=== PATIENT | female | born 1945 | race Caucasian/White ===

== ENCOUNTER 2017-08-21 13:57 | Emergency (ER) | payer MEDICARE, BC ==
[~2017-08-21] VITALS: Ht 162.6 cm; Wt 61.4 kg
[~2017-08-21 13:57] MED LIST: AMPH12.52 PO; CLON-528 PO; DEXT1CAP3 PO; LAMO100T2 PO; LORA1TAB PO
[2017-08-21 15:07] LABS: BASOPHILS # (AUTO) 0.1 X10'3 (0-0.2); BASOPHILS % (AUTO) 1.4 % (0-1); EOSINOPHILS % (AUTO) 0.5 % (0-6); HEMOGLOBIN 12.7 g/dl (12.0-16.0); LYMPHOCYTES # (AUTO) 1.1 X10'3 (1.1-4.8); LYMPHOCYTES % (AUTO) 27.6 % (21-51); MEAN CORPUSCULAR HEMOGLOBIN 26.3 PG (27.0-31.0); MEAN CORPUSCULAR HGB CONC 33.5 % (33.0-36.5); MEAN CORPUSCULAR VOLUME 78.4 FL (78-98); MEAN PLATELET VOLUME 8.4 FL (7.4-10.4); MONOCYTES # (AUTO) 0.3 X10'3 (0-0.9); MONOCYTES % (AUTO) 6.7 % (2-12); NEUTROPHILS # (AUTO) 2.4 X10'3 (1.8-7.7); NEUTROPHILS % (AUTO) 63.8 % (42-75); PLATELET COUNT 227 X10'3 (140-440); RED BLOOD COUNT 4.84 X10'6 (4.20-5.60); RED CELL DISTRIBUTION WIDTH 14.7 % (11.5-14.5); WHITE BLOOD COUNT 3.8 X10'3 (4.5-11.0)
[2017-08-21 15:32] LABS: ALANINE AMINOTRANSFERASE 22 U/L (12-78); ALBUMIN 3.5 G/DL (3.4-5.0); ALBUMIN/GLOBULIN RATIO 0.9 (1.1-1.5); ALKALINE PHOSPHATASE 234 IU/L (46-116); ANION GAP 11 (8-16); ASPARTATE AMINO TRANSFERASE 29 U/L (10-37); BILIRUBIN,TOTAL 0.3 MG/DL (0.1-1.0); BLOOD UREA NITROGEN 20 MG/DL (7-18); BUN/CREATININE RATIO 22.2 (6.6-38.0); CALCIUM 9.4 MG/DL (8.5-10.1); CHLORIDE 102 MMOL/L (99-107); ETHANOL < 0.010 GM/DL (0.0-0.010); POTASSIUM 3.7 MMOL/L (3.5-5.1); SODIUM 138 MMOL/L (135-145); TOTAL CARBON DIOXIDE 25.5 MMOL/L (24-32); TOTAL PROTEIN 7.3 G/DL (6.4-8.2); eGFR 61 ML/MIN
[2017-08-21 15:37] LABS: GLUCOSE 155 MG/DL (70-104)
[2017-08-21 16:19] LABS: CLARITY,URINE CLEAR (Clear); COLOR,URINE YELLOW (Yellow); GLUCOSE, URINE NEGATIVE (Neg); KETONES,URINE 15 mg/dl (Neg); LEUKOCYTE ESTERASE ,URINE SMALL (Neg); NITRITES, URINE NEGATIVE (Neg); OCCULT BLOOD,URINE NEGATIVE (Neg); PROTEIN,URINE NEGATIVE (Neg); UROBILINOGEN,URINE 0.2 E.U/dL (0.2-1.0)
[2017-08-21 16:20] LABS: UA COLLECTION TYPE NON-SPECIFIED
[2017-08-21 16:26] LABS: BACTERIA,URINE NONE SEEN /HPF (Neg); RBC,URINE NONE SEEN /HPF (0-2); SQUAMOUS EPITHELIAL CELL,UR FEW /LPF (FEW); URINE AMPHETAMINE SCREEN NEGATIVE (Neg); URINE BARBITUATE SCREEN NEGATIVE (Neg); URINE BENZODIAZEPINES SCREEN NEGATIVE (Neg); URINE CANNABINOID SCREEN POSITIVE (Neg); URINE COCAINE SCREEN NEGATIVE (Neg); URINE METHADONE SCREEN NEGATIVE (Neg); URINE OPIATE SCREEN NEGATIVE (Neg); URINE PHENCYCLIDINE SCREEN NEGATIVE (Neg)
[2017-08-21] MEDS: LACTOSE-FREE FOOD (BOOST BREEZE) 237ML PO SCH (18:05)
[2017-08-21] MEDS ORDERED: traZODone 50mg tablet PO ONE (23:55)
[2017-08-22] MEDS: LACTOSE-FREE FOOD (BOOST BREEZE) 237ML PO SCH ×2 (08:00→12:55)
[2017-08-22] MEDS ORDERED: lamoTRIgine 100mg tablet PO SCH (08:00)
[2017-08-22] MEDS ORDERED: nitrofuran/nitrofuran macrocrysal 100 MG capsule PO SCH (08:00)
[2017-08-22] MEDS ORDERED: LORazepam 1 MG tablet PO ONE (08:40)
[2017-08-22 15:35] VITALS: BP 113/59
[2017-08-22] MEDS ORDERED: lurasidone 20mg tablet PO SCH (21:00)
== END 2017-08-22 15:39 | disposition home or self-care (01) ==
LOC: ER 13:57
DX: F31.9 Bipolar disorder, unspecified (principal); F12.10 Cannabis abuse, uncomplicated; R62.7 Adult failure to thrive
CPT/HCPCS: 36415; 80053; 80305; 80320; 81001; 84443; 85025; 87077; 87088; 87186; 99285

== ENCOUNTER 2017-08-22 12:45 | Inpatient (IN) | payer MEDICARE, BC ==
[~2017-08-22] VITALS: Ht 167.6 cm; Wt 60.3 kg
[2017-08-22 15:17] VITALS: BP 141/84
[2017-08-22 16:17] VITALS: BP 141/84
[2017-08-22 20:00] VITALS: BP 124/75
[2017-08-22] MEDS ORDERED: acetaminophen 325mg tablet PO PRN (20:25)
[2017-08-22] MEDS ORDERED: magnesium hydroxide 30ml (MOM) UD suspension PO PRN (20:25)
[2017-08-22] MEDS ORDERED: mag hydrox/Alum hydrox/simeth 30ml oral suspension PO PRN (20:25)
[2017-08-22] MEDS ORDERED: nitrofuran/nitrofuran macrocrysal 100 MG capsule PO ONE (21:50)
[2017-08-22] MEDS: hydrOXYzine 10 MG tablet PO PRN (22:04)
[2017-08-22] MEDS: traMADol 50MG tablet PO PRN (22:04)
[2017-08-23 08:00] VITALS: BP 118/76
[2017-08-23] MEDS ORDERED: nitrofuran/nitrofuran macrocrysal 100 MG capsule PO SCH (08:30)
[2017-08-23] MEDS: hydrOXYzine 10 MG tablet PO PRN ×2 (08:37→20:38)
[2017-08-23] MEDS: traMADol 50MG tablet PO PRN ×2 (08:39→20:39)
[2017-08-23] MEDS ORDERED: duloxetine 30mg CAPSULE.DR PO ONE (11:25)
[2017-08-23 20:00] VITALS: BP 119/60
[2017-08-23] MEDS: sulfamethoxazole/trimethoprim DS (800/160mg) tablet PO SCH (20:37)
[2017-08-23] MEDS: traZODone 50mg tablet PO PRN (20:38)
[2017-08-24 07:08] VITALS: BP 108/54
[2017-08-24] MEDS: sulfamethoxazole/trimethoprim DS (800/160mg) tablet PO SCH ×2 (08:13→20:00)
[2017-08-24] MEDS: duloxetine 30mg CAPSULE.DR PO SCH (08:13)
[2017-08-24] MEDS: hydrOXYzine 10 MG tablet PO PRN ×2 (08:49→18:59)
[2017-08-24] MEDS: lactobacillus rhamnosus 10,000 MMU CELLS/CAPSULE PO SCH (17:41)
[2017-08-24] MEDS: Protein Smoothie (high protein) 240ml (8oz) cup PO SCH (18:17)
[2017-08-24] MEDS: traMADol 50MG tablet PO PRN (18:59)
[2017-08-24 19:43] VITALS: BP 131/48
[2017-08-24] MEDS: traZODone 50mg tablet PO PRN (21:05)
[2017-08-24] MEDS: polyethylene glycol 3350 17gm powd pack PO SCH (21:05)
[2017-08-25 08:00] VITALS: BP 126/48
[2017-08-25] MEDS: Protein Smoothie (high protein) 240ml (8oz) cup PO SCH ×3 (08:00→18:00)
[2017-08-25] MEDS: lactobacillus rhamnosus 10,000 MMU CELLS/CAPSULE PO SCH ×2 (08:21→20:49)
[2017-08-25] MEDS: sulfamethoxazole/trimethoprim DS (800/160mg) tablet PO SCH ×2 (08:22→20:49)
[2017-08-25] MEDS: duloxetine 30mg CAPSULE.DR PO SCH (08:22)
[2017-08-25] MEDS ORDERED: duloxetine 30mg CAPSULE.DR PO ONE (10:15)
[2017-08-25] MEDS: Protein Shake (high protein) 240ml (8oz) cup PO SCH ×2 (13:00→18:00)
[2017-08-25] MEDS: hydrOXYzine 10 MG tablet PO PRN (13:45)
[2017-08-25 20:00] VITALS: BP 124/52
[2017-08-25] MEDS: traZODone 50mg tablet PO PRN (20:49)
[2017-08-25] MEDS: polyethylene glycol 3350 17gm powd pack PO SCH (20:53)
[2017-08-26 08:00] VITALS: BP 123/52
[2017-08-26] MEDS: lactobacillus rhamnosus 10,000 MMU CELLS/CAPSULE PO SCH ×2 (08:03→17:54)
[2017-08-26] MEDS: sulfamethoxazole/trimethoprim DS (800/160mg) tablet PO SCH ×2 (08:03→20:18)
[2017-08-26] MEDS: duloxetine 30mg CAPSULE.DR PO SCH (08:03)
[2017-08-26] MEDS: Protein Shake (high protein) 240ml (8oz) cup PO SCH ×4 (08:20→18:30)
[2017-08-26] MEDS: Protein Smoothie (high protein) 240ml (8oz) cup PO SCH ×3 (08:20→18:30)
[2017-08-26] MEDS: hydrOXYzine 10 MG tablet PO PRN ×2 (08:58→19:01)
[2017-08-26] MEDS: traMADol 50MG tablet PO PRN (19:01)
[2017-08-26] MEDS: lurasidone 20mg tablet PO SCH (19:20)
[2017-08-26 20:03] VITALS: BP 153/71
[2017-08-26] MEDS: polyethylene glycol 3350 17gm powd pack PO SCH (20:18)
[2017-08-26] MEDS: traZODone 50mg tablet PO PRN (20:32)
[2017-08-27] MEDS ORDERED: bisacodyl 10mg suppository rectal RC PRN (05:10)
[2017-08-27 07:42] LABS: CHOL/HDL RATIO 2.9 (0.00-4.99); CHOLESTEROL 194 MG/DL (0-200); HDL CHOLESTEROL 67 MG/DL (35-60); LDL CHOLESTEROL 105 MG/DL (50-100); TRIGLYCERIDES 54 MG/DL (20-135)
[2017-08-27 07:44] LABS: HEMOGLOBIN A1C 5.7 % (4.5-6.2)
[2017-08-27] MEDS: Protein Shake (high protein) 240ml (8oz) cup PO SCH ×3 (07:55→17:53)
[2017-08-27] MEDS: Protein Smoothie (high protein) 240ml (8oz) cup PO SCH ×3 (07:55→17:52)
[2017-08-27] MEDS: sulfamethoxazole/trimethoprim DS (800/160mg) tablet PO SCH ×2 (07:57→20:12)
[2017-08-27] MEDS: duloxetine 30mg CAPSULE.DR PO SCH (07:57)
[2017-08-27] MEDS: lactobacillus rhamnosus 10,000 MMU CELLS/CAPSULE PO SCH ×2 (07:57→17:52)
[2017-08-27] MEDS: sennosides/docusate sodium tablet PO SCH ×2 (07:57→20:13)
[2017-08-27 08:00] VITALS: BP 131/56
[2017-08-27] MEDS: hydrOXYzine 10 MG tablet PO PRN ×2 (08:42→20:13)
[2017-08-27] MEDS: lurasidone 20mg tablet PO SCH (17:52)
[2017-08-27] MEDS ORDERED: lurasidone 20mg tablet PO SCH (18:00)
[2017-08-27 19:41] VITALS: BP 126/60
[2017-08-27] MEDS: polyethylene glycol 3350 17gm powd pack PO SCH (20:12)
[2017-08-27] MEDS: traZODone 50mg tablet PO PRN (20:13)
[2017-08-28 07:20] VITALS: BP 136/44
[2017-08-28] MEDS: lactobacillus rhamnosus 10,000 MMU CELLS/CAPSULE PO SCH ×2 (07:50→17:52)
[2017-08-28] MEDS: Protein Smoothie (high protein) 240ml (8oz) cup PO SCH ×3 (07:52→17:52)
[2017-08-28] MEDS: Protein Shake (high protein) 240ml (8oz) cup PO SCH ×3 (07:52→17:52)
[2017-08-28] MEDS: sennosides/docusate sodium tablet PO SCH ×2 (08:40→20:16)
[2017-08-28] MEDS: sulfamethoxazole/trimethoprim DS (800/160mg) tablet PO SCH ×2 (08:40→20:16)
[2017-08-28] MEDS: duloxetine 30mg CAPSULE.DR PO SCH (08:40)
[2017-08-28] MEDS: hydrOXYzine 10 MG tablet PO PRN ×2 (12:17→19:13)
[2017-08-28] MEDS: lurasidone 20mg tablet PO SCH (19:02)
[2017-08-28] MEDS: traMADol 50MG tablet PO PRN (19:05)
[2017-08-28 19:45] VITALS: BP 128/68
[2017-08-28] MEDS: polyethylene glycol 3350 17gm powd pack PO SCH (20:16)
[2017-08-28] MEDS: traZODone 50mg tablet PO PRN (20:17)
[2017-08-29 07:12] VITALS: BP 120/54
[2017-08-29] MEDS: sennosides/docusate sodium tablet PO SCH ×2 (07:26→20:00)
[2017-08-29] MEDS: sulfamethoxazole/trimethoprim DS (800/160mg) tablet PO SCH ×2 (07:26→20:33)
[2017-08-29] MEDS: duloxetine 30mg CAPSULE.DR PO SCH ×2 (07:26→12:38)
[2017-08-29] MEDS: lactobacillus rhamnosus 10,000 MMU CELLS/CAPSULE PO SCH ×2 (07:26→17:41)
[2017-08-29] MEDS: Protein Smoothie (high protein) 240ml (8oz) cup PO SCH ×3 (07:58→17:43)
[2017-08-29] MEDS: Protein Shake (high protein) 240ml (8oz) cup PO SCH ×3 (07:58→17:43)
[2017-08-29] MEDS: hydrOXYzine 10 MG tablet PO PRN ×2 (11:21→23:59)
[2017-08-29] MEDS: lurasidone 20mg tablet PO SCH (17:43)
[2017-08-29 19:30] VITALS: BP 125/54
[2017-08-29] MEDS: polyethylene glycol 3350 17gm powd pack PO SCH (20:30)
[2017-08-29] MEDS: traZODone 50mg tablet PO PRN (20:33)
[2017-08-29] MEDS: traZODone 50mg tablet PO SCH ×3 (20:50→23:52)
[2017-08-30 07:17] VITALS: BP 137/65
[2017-08-30] MEDS: sulfamethoxazole/trimethoprim DS (800/160mg) tablet PO SCH ×2 (07:19→20:40)
[2017-08-30] MEDS: sennosides/docusate sodium tablet PO SCH ×2 (07:19→20:40)
[2017-08-30] MEDS: duloxetine 30mg CAPSULE.DR PO SCH ×2 (07:19→12:44)
[2017-08-30] MEDS: lactobacillus rhamnosus 10,000 MMU CELLS/CAPSULE PO SCH ×2 (07:19→17:44)
[2017-08-30] MEDS: Protein Shake (high protein) 240ml (8oz) cup PO SCH ×3 (08:02→17:44)
[2017-08-30] MEDS: Protein Smoothie (high protein) 240ml (8oz) cup PO SCH ×3 (08:03→17:44)
[2017-08-30] MEDS: hydrOXYzine 10 MG tablet PO PRN ×2 (10:37→19:27)
[2017-08-30] MEDS: lurasidone 20mg tablet PO SCH (17:44)
[2017-08-30 19:00] VITALS: BP 112/41
[2017-08-30] MEDS: traMADol 50MG tablet PO PRN (19:28)
[2017-08-30] MEDS: traZODone 50mg tablet PO SCH (20:39)
[2017-08-30] MEDS: polyethylene glycol 3350 17gm powd pack PO SCH (21:00)
[2017-08-31 08:00] VITALS: BP 123/69
[2017-08-31] MEDS: sennosides/docusate sodium tablet PO SCH ×2 (08:23→20:19)
[2017-08-31] MEDS: lactobacillus rhamnosus 10,000 MMU CELLS/CAPSULE PO SCH ×2 (08:23→17:44)
[2017-08-31] MEDS: duloxetine 30mg CAPSULE.DR PO SCH (08:23)
[2017-08-31] MEDS: sulfamethoxazole/trimethoprim DS (800/160mg) tablet PO SCH ×2 (08:23→20:18)
[2017-08-31] MEDS: Protein Smoothie (high protein) 240ml (8oz) cup PO SCH ×3 (08:24→18:00)
[2017-08-31] MEDS: Protein Shake (high protein) 240ml (8oz) cup PO SCH ×3 (08:24→18:00)
[2017-08-31] MEDS ORDERED: duloxetine 30mg CAPSULE.DR PO ONE (15:25)
[2017-08-31] MEDS: traMADol 50MG tablet PO PRN (15:35)
[2017-08-31] MEDS: hydrOXYzine 10 MG tablet PO PRN (15:35)
[2017-08-31] MEDS: lurasidone 20mg tablet PO SCH (17:44)
[2017-08-31 19:26] VITALS: BP 129/53
[2017-08-31] MEDS: traZODone 50mg tablet PO SCH (20:19)
[2017-08-31] MEDS: polyethylene glycol 3350 17gm powd pack PO SCH (20:20)
[2017-09-01] MEDS: sulfamethoxazole/trimethoprim DS (800/160mg) tablet PO SCH (07:50)
[2017-09-01] MEDS: duloxetine 30mg CAPSULE.DR PO SCH (07:50)
[2017-09-01] MEDS: lactobacillus rhamnosus 10,000 MMU CELLS/CAPSULE PO SCH ×2 (07:50→17:06)
[2017-09-01] MEDS: Protein Smoothie (high protein) 240ml (8oz) cup PO SCH ×3 (07:50→18:43)
[2017-09-01] MEDS: sennosides/docusate sodium tablet PO SCH ×2 (07:50→20:37)
[2017-09-01] MEDS: Protein Shake (high protein) 240ml (8oz) cup PO SCH ×3 (07:52→18:42)
[2017-09-01 08:00] VITALS: BP 112/52
[2017-09-01] MEDS: hydrOXYzine 10 MG tablet PO PRN (10:30)
[2017-09-01] MEDS ORDERED: duloxetine 30mg CAPSULE.DR PO SCH (12:30)
[2017-09-01] MEDS ORDERED: duloxetine 30mg CAPSULE.DR PO ONE (13:25)
[2017-09-01] MEDS: traMADol 50MG tablet PO PRN (17:06)
[2017-09-01 19:50] VITALS: BP 124/47
[2017-09-01] MEDS: polyethylene glycol 3350 17gm powd pack PO SCH (20:48)
[2017-09-01] MEDS ORDERED: QUEtiapine 25mg tablet PO SCH (21:00)
[2017-09-02] MEDS: duloxetine 30mg CAPSULE.DR PO SCH ×2 (07:44→12:43)
[2017-09-02] MEDS: lactobacillus rhamnosus 10,000 MMU CELLS/CAPSULE PO SCH ×2 (07:44→17:45)
[2017-09-02] MEDS: sennosides/docusate sodium tablet PO SCH ×2 (07:44→20:04)
[2017-09-02 08:00] VITALS: BP 119/66
[2017-09-02] MEDS: Protein Shake (high protein) 240ml (8oz) cup PO SCH ×3 (08:00→18:28)
[2017-09-02] MEDS: Protein Smoothie (high protein) 240ml (8oz) cup PO SCH ×3 (08:00→18:28)
[2017-09-02] MEDS: hydrOXYzine 10 MG tablet PO PRN (13:44)
[2017-09-02] MEDS: traMADol 50MG tablet PO PRN (13:45)
[2017-09-02] MEDS: polyethylene glycol 3350 17gm powd pack PO SCH (20:08)
[2017-09-02 20:22] VITALS: BP 123/48
[2017-09-02] MEDS ORDERED: QUEtiapine 25mg tablet PO SCH (21:00)
[2017-09-03 07:39] VITALS: BP 144/65
[2017-09-03] MEDS: Protein Shake (high protein) 240ml (8oz) cup PO SCH ×3 (08:00→18:33)
[2017-09-03] MEDS: Protein Smoothie (high protein) 240ml (8oz) cup PO SCH ×3 (08:00→18:33)
[2017-09-03] MEDS: lactobacillus rhamnosus 10,000 MMU CELLS/CAPSULE PO SCH ×2 (08:16→17:15)
[2017-09-03] MEDS: duloxetine 30mg CAPSULE.DR PO SCH ×2 (08:16→12:18)
[2017-09-03] MEDS: sennosides/docusate sodium tablet PO SCH ×2 (08:17→20:16)
[2017-09-03 18:55] VITALS: BP 155/70
[2017-09-03 20:00] VITALS: BP 155/70
[2017-09-03] MEDS: polyethylene glycol 3350 17gm powd pack PO SCH (21:00)
[2017-09-03] MEDS ORDERED: QUEtiapine 25mg tablet PO SCH (21:00)
[2017-09-04 07:10] VITALS: BP 131/61
[2017-09-04] MEDS: lactobacillus rhamnosus 10,000 MMU CELLS/CAPSULE PO SCH ×2 (08:19→17:32)
[2017-09-04] MEDS: duloxetine 30mg CAPSULE.DR PO SCH ×2 (08:20→12:35)
[2017-09-04] MEDS: sennosides/docusate sodium tablet PO SCH ×2 (08:20→20:41)
[2017-09-04] MEDS: Protein Smoothie (high protein) 240ml (8oz) cup PO SCH ×3 (08:21→18:30)
[2017-09-04] MEDS: Protein Shake (high protein) 240ml (8oz) cup PO SCH ×3 (08:21→18:30)
[2017-09-04] MEDS: traMADol 50MG tablet PO PRN ×4 (16:08→17:29)
[2017-09-04 19:07] VITALS: BP 139/72
[2017-09-04] MEDS: polyethylene glycol 3350 17gm powd pack PO SCH (20:41)
[2017-09-04] MEDS: quetiapine 100mg tablet PO SCH (20:41)
[2017-09-05] MEDS: Protein Smoothie (high protein) 240ml (8oz) cup PO SCH ×3 (08:00→18:57)
[2017-09-05] MEDS: Protein Shake (high protein) 240ml (8oz) cup PO SCH ×3 (08:00→18:57)
[2017-09-05 08:09] VITALS: BP 118/46
[2017-09-05] MEDS: duloxetine 30mg CAPSULE.DR PO SCH ×2 (08:11→13:01)
[2017-09-05] MEDS: lactobacillus rhamnosus 10,000 MMU CELLS/CAPSULE PO SCH ×2 (08:11→19:06)
[2017-09-05] MEDS: sennosides/docusate sodium tablet PO SCH ×2 (08:11→20:50)
[2017-09-05 19:00] VITALS: BP 144/61
[2017-09-05] MEDS: quetiapine 100mg tablet PO SCH (20:51)
[2017-09-05] MEDS: polyethylene glycol 3350 17gm powd pack PO SCH (20:59)
[2017-09-06 07:42] VITALS: BP 163/72
[2017-09-06] MEDS: duloxetine 30mg CAPSULE.DR PO SCH ×2 (08:06→13:29)
[2017-09-06] MEDS: lactobacillus rhamnosus 10,000 MMU CELLS/CAPSULE PO SCH (08:06)
[2017-09-06] MEDS: sennosides/docusate sodium tablet PO SCH ×2 (08:06→20:39)
[2017-09-06] MEDS: Protein Smoothie (high protein) 240ml (8oz) cup PO SCH ×3 (08:17→18:01)
[2017-09-06] MEDS: Protein Shake (high protein) 240ml (8oz) cup PO SCH ×3 (08:17→18:01)
[2017-09-06] MEDS: traMADol 50MG tablet PO PRN (11:03)
[2017-09-06] MEDS: hydrOXYzine 10 MG tablet PO PRN (15:48)
[2017-09-06 20:00] VITALS: BP 139/84
[2017-09-06] MEDS: quetiapine 100mg tablet PO SCH (20:39)
[2017-09-06] MEDS: polyethylene glycol 3350 17gm powd pack PO SCH (21:00)
[2017-09-07 07:30] VITALS: BP 119/54
[2017-09-07] MEDS: duloxetine 30mg CAPSULE.DR PO SCH ×2 (08:11→12:51)
[2017-09-07] MEDS: sennosides/docusate sodium tablet PO SCH ×2 (08:12→20:18)
[2017-09-07] MEDS: Protein Shake (high protein) 240ml (8oz) cup PO SCH ×3 (08:17→14:00)
[2017-09-07] MEDS: Protein Smoothie (high protein) 240ml (8oz) cup PO SCH ×3 (08:17→18:00)
[2017-09-07] MEDS: busPIRone 5mg tablet PO SCH ×2 (12:50→20:18)
[2017-09-07] MEDS: hydrOXYzine 10 MG tablet PO PRN (14:20)
[2017-09-07] MEDS: quetiapine 100mg tablet PO SCH (20:18)
[2017-09-07] MEDS: polyethylene glycol 3350 17gm powd pack PO SCH (20:25)
[2017-09-07 20:46] VITALS: BP 154/55
[2017-09-08 08:00] VITALS: BP 148/72
[2017-09-08] MEDS: Protein Smoothie (high protein) 240ml (8oz) cup PO SCH ×3 (08:16→18:00)
[2017-09-08] MEDS: Protein Shake (high protein) 240ml (8oz) cup PO SCH ×3 (08:16→18:00)
[2017-09-08] MEDS: sennosides/docusate sodium tablet PO SCH ×2 (08:17→20:25)
[2017-09-08] MEDS: duloxetine 30mg CAPSULE.DR PO SCH ×2 (08:17→12:43)
[2017-09-08] MEDS: busPIRone 5mg tablet PO SCH ×3 (08:17→20:25)
[2017-09-08] MEDS: hydrOXYzine 10 MG tablet PO PRN (12:43)
[2017-09-08 20:00] VITALS: BP 141/66
[2017-09-08] MEDS: quetiapine 100mg tablet PO SCH (20:25)
[2017-09-08] MEDS: polyethylene glycol 3350 17gm powd pack PO SCH (21:00)
[2017-09-09] MEDS: busPIRone 5mg tablet PO SCH ×3 (07:54→20:21)
[2017-09-09] MEDS: sennosides/docusate sodium tablet PO SCH ×2 (07:54→20:21)
[2017-09-09] MEDS: duloxetine 30mg CAPSULE.DR PO SCH ×2 (07:54→13:00)
[2017-09-09 08:00] VITALS: BP 140/68
[2017-09-09] MEDS: Protein Shake (high protein) 240ml (8oz) cup PO SCH ×3 (08:58→18:43)
[2017-09-09] MEDS: Protein Smoothie (high protein) 240ml (8oz) cup PO SCH ×3 (08:58→18:43)
[2017-09-09] MEDS: traMADol 50MG tablet PO PRN (15:43)
[2017-09-09 19:19] VITALS: BP 137/70
[2017-09-09] MEDS: quetiapine 100mg tablet PO SCH (20:21)
[2017-09-09] MEDS: polyethylene glycol 3350 17gm powd pack PO SCH (21:00)
[2017-09-10 08:00] VITALS: BP 133/63
[2017-09-10] MEDS: Protein Smoothie (high protein) 240ml (8oz) cup PO SCH ×3 (08:02→18:52)
[2017-09-10] MEDS: Protein Shake (high protein) 240ml (8oz) cup PO SCH ×3 (08:02→18:51)
[2017-09-10] MEDS: sennosides/docusate sodium tablet PO SCH ×2 (08:02→20:31)
[2017-09-10] MEDS: busPIRone 5mg tablet PO SCH ×3 (08:02→20:30)
[2017-09-10] MEDS: duloxetine 30mg CAPSULE.DR PO SCH ×2 (08:02→12:52)
[2017-09-10] MEDS: hydrOXYzine 10 MG tablet PO PRN (12:53)
[2017-09-10 19:00] VITALS: BP 141/66
[2017-09-10] MEDS: quetiapine 100mg tablet PO SCH (20:40)
[2017-09-10] MEDS: polyethylene glycol 3350 17gm powd pack PO SCH (21:00)
[2017-09-11] MEDS: busPIRone 5mg tablet PO SCH ×3 (08:14→20:30)
[2017-09-11] MEDS: sennosides/docusate sodium tablet PO SCH ×2 (08:14→20:30)
[2017-09-11] MEDS: duloxetine 30mg CAPSULE.DR PO SCH ×2 (08:15→12:50)
[2017-09-11] MEDS: Protein Smoothie (high protein) 240ml (8oz) cup PO SCH ×4 (08:16→19:00)
[2017-09-11] MEDS: Protein Shake (high protein) 240ml (8oz) cup PO SCH ×3 (08:16→18:00)
[2017-09-11 08:32] VITALS: BP 128/73
[2017-09-11] MEDS: hydrOXYzine 10 MG tablet PO PRN (09:41)
[2017-09-11] MEDS ORDERED: hydrOXYzine 10 MG tablet PO PRN (17:35)
[2017-09-11 20:06] VITALS: BP 147/80
[2017-09-11] MEDS: quetiapine 100mg tablet PO SCH (20:30)
[2017-09-11] MEDS: polyethylene glycol 3350 17gm powd pack PO SCH (20:34)
[2017-09-12 08:01] VITALS: BP 129/77
[2017-09-12] MEDS: sennosides/docusate sodium tablet PO SCH (08:29)
[2017-09-12] MEDS: busPIRone 5mg tablet PO SCH ×2 (08:29→12:48)
[2017-09-12] MEDS: Protein Shake (high protein) 240ml (8oz) cup PO SCH ×2 (08:30→08:31)
[2017-09-12] MEDS: duloxetine 30mg CAPSULE.DR PO SCH ×2 (08:30→12:48)
[2017-09-12] MEDS: traMADol 50MG tablet PO PRN (10:28)
[2017-09-12] MEDS: Protein Smoothie (high protein) 240ml (8oz) cup PO SCH (13:00)
[2017-09-12] MEDS ORDERED: HYDR-3717 PO (13:06)
[2017-09-12] MEDS ORDERED: BUSP10TA10 PO (13:06)
[2017-09-12] MEDS ORDERED: QUET100T33 PO (13:06)
[2017-09-12] MEDS ORDERED: DULO60CA64 PO (13:06)
[2017-09-12] MEDS ORDERED: TRAM50TA2 PO (13:06)
== END 2017-09-12 17:15 | disposition home or self-care (01) | DRG 885 ==
LOC: ADULT MH 12:45
PROVIDERS: ADMIT Psychiatry & Neurology Psychiatry; ATTEND Psychiatry & Neurology Psychiatry
DX: F33.2 Major depressive disorder, recurrent severe without psychotic features (principal); N39.0 Urinary tract infection, site not specified; F12.90 Cannabis use, unspecified, uncomplicated; G47.00 Insomnia, unspecified; F41.9 Anxiety disorder, unspecified; I87.8 Other specified disorders of veins; G89.4 Chronic pain syndrome; R62.7 Adult failure to thrive; M54.9 Dorsalgia, unspecified; F17.210 Nicotine dependence, cigarettes, uncomplicated; Z90.710 Acquired absence of both cervix and uterus; Z71.6 Tobacco abuse counseling
CPT/HCPCS: 36415; 80061; 83036; 87070; 99285